=== PATIENT | male | born 1945 | race Caucasian/White ===

== ENCOUNTER 2018-06-16 23:20 | Emergency (ER) | payer MEDICARE, BC ==
[2018-06-16] MEDS ORDERED: HYDROcodone/APAP 7.5-325MG 1 EACH TAB PO ONE (23:41)
[2018-06-17 00:43] VITALS: RESP 18; TEMP 97.9
--- NOTE | 2018-06-17 00:43 | ED ---
General Adult HPI - General Source: patient, RN notes reviewed, old records reviewed Mode of arrival: wheelchair Limitations: no limitations <Sharan Kim - Last Filed: 06/17/18 03:14> <Carmen Jordan - Last Filed: 06/17/18 03:37> - General Chief complaint: Fall Stated complaint: fall,back pain Time Seen by Provider: 06/16/18 23:31 - History of Present Illness Initial comments: 72-year-old male patient with no pertinent past history, not anticoagulated presents to ED after sustaining a fall approximately 2 days ago eyes. Patient states he slipped fell onto his right hip, also reminded trauma to his frontal lobe. Patient denies any loss of consciousness. Patient primary complaint today is right hip and lumbar back pain. Patient has been ambulatory with minor limp. Patient denies any headache or changes in vision. Patient denies any pain in neck. Patient denies any abdominal pain, shortness of breath, chest pain. Systemic: Pt denies fatigue, fever/chills, rash. Pt denies weakness, night sweats, weight loss. Neuro: Pt denies headache, visual disturbances, syncope or pre-syncope. HEENT: Pt denies ocular discharge or irritation, otalgia, rhinorrhea, pharyngitis or notable lymphadenopathy. Cardiopulmonary: Pt denies chest pain, SOB, heart palpitations, dyspnea on exertion. Abdominal/GI: Pt denies abdominal pain, n/v/d. : Pt denies dysuria, burning w/ urination, frequency/urgency. Denies new onset urinary or bowel incontinence. MSK: Pt denies loss of strength or function in extremities. Neuro: Pt denies new onset weakness, paresthesias. (Sharan Kim) - Related Data Home Medications Medication Instructions Recorded Confirmed Multivitamins, Thera [Multivitamin 1 tab PO DAILY 06/16/18 06/16/18 (formulary)] Previous Rx's Medication Instructions Recorded Cyclobenzaprine [Flexeril] 10 mg PO TID #20 tab 06/17/18 Ibuprofen [Motrin] 600 mg PO Q6HR PRN #40 day 06/17/18 Allergies Allergy/AdvReac Type Severity Reaction Status Date / Time No Known Allergies Allergy Verified 06/16/18 23:37 Review of Systems ROS Other: All systems not noted in ROS Statement are negative. <Sharan Kim - Last Filed: 06/17/18 03:14> ROS Other: All systems not noted in ROS Statement are negative. <Carmen Jordan - Last Filed: 06/17/18 03:37> ROS Statement: Those systems with pertinent positive or pertinent negative responses have been documented in the HPI. Past Medical History Past Medical History: No Reported History History of Any Multi-Drug Resistant Organisms: None Reported Past Surgical History: No Surgical Hx Reported Past Psychological History: No Psychological Hx Reported Smoking Status: Current every day smoker Past Alcohol Use History: None Reported Past Drug Use History: None Reported <Sharan Kim - Last Filed: 06/17/18 03:14> General Exam Limitations: no limitations <Sharan Kim - Last Filed: 06/17/18 03:14> <Carmen Jordan - Last Filed: 06/17/18 03:37> - General Exam Comments Initial Comments: Constitutional: NAD, AOX3, Pt has pleasant affect. HEENT: NC/AT, trachea midline, neck supple, no lymphadenopathy. Posterior pharynx non erythematous, without exudates. External ears appear normal, without discharge. Mucous membranes moist. Eyes PERRLA, EOM intact. There is no scleral icterus. No pallor noted. Cardiopulmonary: RRR, no murmurs, rubs or gallops, no JVD noted. Lungs CTAB in anterior and posterior griffin. No peripheral edema. Abdominal exam: Abdomen soft and non-distended. Abdomen non-tender to palpation in all 4 quadrants. Bowel sounds active in LLQ. No hepatosplenomegaly. No ecchymosis Neuro: CN II-XII intact. No nuchal rigidity. MSK: 5 out of 5 strength, psoas, quadriceps muscles. No cervical spinal tenderness, no thoracic spine tenderness. No midline lumbar tenderness. Mild amount of right paralumbar tenderness. No posterior calf tenderness bilaterally , homans sign negative bilaterally. Posterior tibialis and radial pulse +2 bilaterally. Sensation intact in upper and lower extremities. Full active ROM in upper and lower extremities, 5/5 stregnth. (Sharan Kim) Vital Signs 06/16/18 06/17/18 06/17/18 23: 00:43 01:50 Temperature 97.5 F L 97.9 F 97.9 F Pulse Rate 79 77 79 Respiratory 20 18 18 Rate Blood Pressure 171/100 155/104 158/93 O2 Sat by Pulse 96 97 97 Oximetry Medical Decision Making <Sharan Kim - Last Filed: 06/17/18 03:14> <Carmen Jordan - Last Filed: 06/17/18 03:37> - Medical Decision Making 72-year-old male patient with no pertinent past history, not anticoagulated presents to ED after sustaining a fall approximately 2 days ago eyes. Patient states he slipped fell onto his right hip, also reminded trauma to his frontal lobe. Patient denies any loss of consciousness. Patient primary complaint today is right hip and lumbar back pain. Patient has been ambulatory with minor limp. Patient denies any headache or changes in vision. Patient denies any pain in neck. Patient denies any abdominal pain, shortness of breath, chest pain. Pt VSS, afebrile. Physical exam displayed: Normal neurologic exam. 5 out of 5 strength, psoas, quadriceps muscles. No cervical spinal tenderness, no thoracic spine tenderness. No midline lumbar tenderness. Mild amount of right paralumbar tenderness. Imaging investigations were conducted. Plain film of lumbar spine do not display any acute pathology. Plain film of right hip and AP pelvis not displaying acute pathology. Noncontrast CT of brain and cervical spine did not display acute pathology. Patient improved with pain medication, ambulatory without difficulty. Patient to be discharged with Flexeril and ibuprofen. Patient diagnosed with lumbar back strain. Patient to follow up with primary care provider in 1-2 days for continued evaluation. Patient to return to ED if condition worsens in any way. Patient not drive home. Case discussed with Dr. Jordan. (Sharan Kim) I was available for consultation in the emergency department. The history and physical exam were done by the midlevel provider. I was consulted for this patient's care. I reviewed the case with the midlevel provider and based on their presentation of the patient, I agree with the assessment, medical decision making and plan of care as documented. (Carmen Jordan) Disposition Is patient prescribed a controlled substance at d/c from ED?: No Time of Disposition: 01:34 <Sharan Kim - Last Filed: 06/17/18 03:14> <Carmen Jordan - Last Filed: 06/17/18 03:37> Clinical Impression: Fall Disposition: HOME SELF-CARE Condition: Stable Instructions (If sedation given, give patient instructions): Fall Prevention for Older Adults (ED), Acute Low Back Pain (ED) Additional Instructions: Patient to adhere to previously discussed treatment plan and will take medication(s) as directed. Patient to follow up with PCP in 1-2 days. Patient to return to ED if symptoms do not improve. Please follow-up with primary care provider in 1-2 days for continued evaluation. Please use Flexeril and ibuprofen as needed for pain and inflammation. Prescriptions: Cyclobenzaprine [Flexeril] 10 mg PO TID #20 tab Ibuprofen [Motrin] 600 mg PO Q6HR PRN #40 day PRN Reason: Pain Referrals: None,Stated [[facility] Care [facility]
--- NOTE | 2018-06-17 00:45 | XR ---
EXAM: XR Lumbar Spine, 2 or 3 Views CLINICAL HISTORY: Pain TECHNIQUE: Frontal and lateral views of the lumbar spine. COMPARISON: No relevant prior studies available. FINDINGS: Vertebrae: No acute fracture or traumatic malalignment. Disc spaces: Mild degenerative changes. Soft tissues: Unremarkable. Vasculature: Vascular calcifications. IMPRESSION: No acute findings.
--- NOTE | 2018-06-17 00:49 | XR ---
EXAM: XR Right Hip With Pelvis When Performed, 2 or 3 Views CLINICAL HISTORY: None. TECHNIQUE: Two or three views of the right hip, with pelvis when performed. COMPARISON: No relevant prior studies available. FINDINGS: Bones/joints: No acute fracture or traumatic malalignment. Soft tissues: Unremarkable. Vasculature: Punctate calcific a she within the left hemipelvis, likely a phlebolith. IMPRESSION: No acute findings.
[2018-06-17] MEDS ORDERED: IBUPROFEN 600 MG STARTER PACK 4 TAB BTL PO STA (01:35)
[2018-06-17 01:52] VITALS: BP 158/93; PULSE 79
--- NOTE | 2018-06-19 12:45 | CT ---
EXAM: CT Head Without Intravenous Contrast CLINICAL HISTORY: Trauma TECHNIQUE: Axial computed tomography images of the head/brain without intravenous contrast. CTDI is 0.085, 0.085, 45.2, 9.3 mGy and DLP is 1362.5 mGy-cm. This CT exam was performed using one or more of the following dose reduction techniques: automated exposure control, adjustment of the mA and/or kV according to patient size, and/or use of iterative reconstruction technique. COMPARISON: No relevant prior studies available. FINDINGS: Brain: No acute infarct, hemorrhage, mass or edema. No significant white matter disease. Ventricles: Unremarkable. No ventriculomegaly. Bones/joints: Unremarkable. No acute fracture. Soft tissues: Unremarkable. Sinuses: Mild mucosal thickening in the paranasal sinuses. Mastoid air cells: Partial opacification of the left mastoid air cells. IMPRESSION: No acute findings. EXAM: CT Cervical Spine Without Intravenous Contrast CLINICAL HISTORY: Trauma TECHNIQUE: Axial computed tomography images of the cervical spine without intravenous contrast. CTDI is 0.085, 0.085, 45.2, 9.3 mGy and DLP is 1362.5 mGy-cm. This CT exam was performed using one or more of the following dose reduction techniques: automated exposure control, adjustment of the mA and/or kV according to patient size, and/or use of iterative reconstruction technique. COMPARISON: No relevant prior studies available. FINDINGS: Vertebrae: No acute fracture or traumatic malalignment. Discs/spinal canal/neural foramina: No acute findings. No spinal canal stenosis. Soft tissues: Unremarkable. IMPRESSION: No acute findings.
== END 2018-06-17 01:52 | disposition home or self-care (01) ==
LOC: EC 23:20
DX: M54.5 Low back pain (principal); M25.551 Pain in right hip; F17.200 Nicotine dependence, unspecified, uncomplicated; W01.0XXA Fall on same level from slipping, tripping and stumbling without subsequent striking against object, initial encounter
CPT/HCPCS: 70450; 72100; 72125; 73502; 99284